=== PATIENT | female | born 1990 | race American Indian/Alaskan Native ===

== ENCOUNTER 2019-02-02 10:51 | Emergency (ER) | payer OTHER ==
[2019-02-02 11:26] VITALS: BP 118/63
--- NOTE | 2019-02-02 12:49 | Emergency Department Report ---
Eye Injury/Foreign Body - HPI Duration: 2 Days Eye Location: Right Severity: Moderate Eye Symptoms: Eye Pain: No (she has some tenderness at the lacrimal gland with some edema to the lower eyelid on the right), Eye Redness: No, Grinding/Hammering Metal: No, Used Eye Protection: No, Contact Lens Use: No, Recalls Injury: No, Photophobia: No Other History: Patient states this is been recurrent over the last several month s. This is the third episode. ED Review of Systems ROS: Stated complaint: RT EYE SWELLING/PAIN Other details as noted in HPI Comment: All other systems reviewed and negative ED Past Medical Hx - Past Medical History Previous Medical History?: No - Surgical History Past Surgical History?: No - Social History Smoking Status: Never Smoker Substance Use Type: None - Medications Home Medications: Home Medications Medication Instructions Recorded Confirmed Last Taken Type Acetaminophen/Codeine [Tylenol #3] 1 tab PO Q6H PRN #10 tab 12/05/16 Unknown Rx Penicillin Vk [Veetids TAB] 250 mg PO QID #56 tablet 12/05/16 Unknown Rx Penicillin V Potassium 500 mg PO TID #30 tablet 08/08/18 Unknown Rx Tramadol HCl [Ultram] 50 mg PO Q6HR PRN #20 tablet 08/08/18 Unknown Rx Clindamycin [Clindamycin CAP] 300 mg PO Q8H #21 cap 02/02/19 Unknown Rx Ibuprofen [Ibu] 600 mg PO Q6HR PRN #20 tablet 02/02/19 Unknown Rx Eye Injury Exam - Exam General: Vital signs noted. No distress. Alert and acting appropriately. Patient's alert and oriented 3 in no acute distress. The patient's extremities are intact pupils are normal. Conjunctiva is within normal limits. Patient with some mild erythematous swelling to the right lacrimal area with some edema to the lower lid. ED Course Vital Signs 02/02/19 11:24 Temperature 98 F Pulse Rate 90 Respiratory 16 Rate Blood Pressure 118/63 O2 Sat by Pulse 100 Oximetry ED Medical Decision Making - Medical Decision Making Patient referred to ophthalmology. Patient started on antibiotics and can use a warm compress for symptomatic relief. Critical care attestation.: If time is entered above; I have spent that time in minutes in the direct care of this critically ill patient, excluding procedure time. 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
== END 2019-02-02 13:12 | disposition home or self-care (01) ==
LOC: ED 10:51
DX: H04.301 Unspecified dacryocystitis of right lacrimal passage (principal)
CPT/HCPCS: 99282